=== PATIENT | female | born 1990 | race African-American/Black ===

== ENCOUNTER 2023-10-26 19:30 | Emergency (ER) | payer OTHER, SELFPAY ==
[2023-10-26 19:35] VITALS: BP 155/101; BMI 26.6
[2023-10-26 20:54] VITALS: BP 155/110
[2023-10-26 21:00] VITALS: BP 147/102
[2023-10-26 22:00] VITALS: BP 145/107
--- NOTE | 2023-10-26 22:30 | ED.GENMED ---
History of Present Illness
General
Chief Complaint: Chest Pain
Source: patient
Time Seen by Provider: 10/26/23 21:54
Travel History
Have you had any contact with someone who has COVID-19?: No
Do you have any symptoms of coronavirus? Fever > 100 degrees, chills, cough, shortness of breath, sore throat, loss of taste or smell, muscle aches, or headache?: No
History of Present Illness
History of Present Illness:
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
medication. In the last week or so she also notes that she has been having intermittent episodes of chest 'tightness' across the upper part of her chest without radiation, exacerbating, relieving factors. This comes on 'randomly' up to 1-2 times a
day, lasting minutes at a time and then resolving. This not associated with back pain, neck pain, shoulder pain, diaphoresis, vomiting, dyspnea. She also notes intermittent episodes of left arm tingling from her shoulder to her fingertips not
associated with clumsiness or weakness. She is also had intermittent episodes of nausea and nonspecific headache. She is concerned that her symptoms may be related to blood pressure elevation.
Past History
Past History
ED Past Medical History: HTN
ED Past Surgical History: Cholecystectomy
Social History
Tobacco: Non-smoker
Alcohol: None
Drug: None
Living: with family
Employment: Employed
Phy Exam
Physical Exam
Physical Exam:
GENERAL: Alert , in no apparent distress
EYE: pupils equal and reactive
NECK: Supple, no significant adenopathy.
ENT: o/p clr, mmm.
CARDIAC: Regular rate and rhythm .
LUNGS: Clear breath sounds bilaterally, no acute respiratory distress, no wheezes/rales/rhonchi
ABDOMEN: Soft, without focal tenderness, no r/g, no cvat
NEUROLOGICAL: Alert and oriented, no focal neuro deficits
SKIN: Warm and dry, skin intact.
MUSCULOSKELETAL: No edema, well perfused.
PSYCH: Normal and appropriate interaction.
Scores
Heart Score for Chest Pain Patients
STEMI patient?: Not applicable
Course
Orders/Labs/Results
Orders:
Orders
10/26/23 19:37
EKG [Electrocardiogram (*1)] Urgent
Reason for Study: Chest Pain
EKG- Treatment ONCE
10/26/23 22:30
Cardiac Monitoring- Treatment ONCE
10/26/23 22:40
Complete Blood Count/No Diff Urgent
Comprehensive Metabolic Panel Urgent
Troponin I Urgent
10/27/23 01:49
Troponin I Urgent
Abnormal Lab Results
10/26/23
22:40
Chloride 108 H mmol/L
(98-107)
10/26/23 22:40
10/26/23 22:40
Vital Signs
Initial and Last Documented VS:
Initial Vital Signs
Temp Pulse Resp BP Pulse Ox
98.3 F 88 16 155/101 100
10/26/23 19:35 10/26/23 19:35 10/26/23 19:35 10/26/23 19:35 10/26/23 19:35
Last Documented Vital Signs
Temp Pulse Resp BP Pulse Ox
98.3 F 71 10 127/90 97
10/26/23 19:35 10/27/23 01:15 10/27/23 01:15 10/27/23 01:00 10/27/23 01:15
*Critical Care Note
Total Time (30-74mins, 75-104mins- exclusive of procedures): Not Applicable
Update Note
Update Note:
Patient presents to the Emergency Department with ___chest pain, arm tingling, headache, nausea, etc.
Number and Complexity of Problems Addressed at the Encounter
� Chronic conditions affecting care:
� Acute Exacerbation and/or Progression of Chronic Illness:
� Differential Diagnosis includes: But not limited to hypertension related symptoms, ACS, etc.
Amount and/or Complexity of Data to be Reviewed and Analyzed
� I performed an independent evaluation of and my interpretation is:
EKG: Read by me, normal sinus rhythm, normal rate, normal axis, no acute ischemia
CT:
Xrays:
Laboratory Studies: Generally unremarkable
Other:
� Review of other/old records reveals:
� Clinical information was obtained by an independent historian:
� Prescriptions/Medications Considered but not given:
� Further testing considered but not performed:
Risk of Complications and/or Morbidity or Mortality of Patient Management
� Social determinants of health affecting care:
� Discussion with other providers (PCP, Hospitalists, Consultants, etc):
� Escalation of care including admission/observation vs risk of discharge considered: 2:29 AM prolonged observation here, patient took a nap, resting comfortably, repeat blood pressure more reassuring. Long discussion with
patient regarding importance of follow-up particularly around her blood pressure and reasons to return to the ER. She does not describe chest pain or other symptoms at this time. Highly doubt dissection, PE, ACS, etc. given workup history and
physical here.
ED Attending Note
-
Portions of this chart may have been created with voice recognition software.� Occasional wrong word or��sound alike� substitutions may have occurred due to the inherent limitations of voice recognition software.
Discharge Plan
Departure
Patient Disposition: Home (Routine Discharge)
Date of Disposition: 10/27/23
Time of Disposition: 02:27
Patient with high blood pressure during this ER visit?: Yes
Condition: Good
Discharge Problem:
Chest pain
Instructions: Chest Pain PCP Follow Up, BLOOD PRESSURE
Prescriptions:
No Action
alprazolam [Xanax] 0.5 mg tablet
0.5 mg PO BID PRN (Reason: anxiety) Qty: 10 0RF
hydrochlorothiazide 12.5 mg Tablet
12.5 mg PO DAILY
Referrals:
Wilber Malave MD [Family Provider] - Follow up in 2-3 days
Activity Restrictions/Additional Instructions:
PLEASE SEE YOUR PRIMARY CARE DOCTOR AND CLOSE FOLLOW-UP THIS WEEK, IN REGARDS TO NOT ONLY YOUR SYMPTOMS TODAY BUT ALSO YOUR ELEVATED BLOOD PRESSURE. IF YOU DEVELOP RECURRENT OR NEW CHEST PAIN, ANY SHORTNESS OF BREATH, FEVER, VOMITING, ABDOMINAL
PAIN, OR OTHER WORRISOME SIGNS, PLEASE RETURN TO THE ER IMMEDIATELY.
Interventions
Interventions:
*Risk Screen - Suicide Last Done: 10/26/23 19:35
*General Assessment Last Done: 10/26/23 20:44
*Neglect/Abuse Screening Last Done: 10/26/23 19:35
ED- Fall Risk Assessment Last Done: 10/26/23 20:44
*ED COVID-19 Vaccine History Last Done: 10/26/23 19:35
ED- Cardiac Assessment Last Done: 10/26/23 20:44
Discharge Date and Time
Print Language: PERSIAN
[2023-10-26 22:53] LABS: Hematocrit 37.4 % (37.0-47.0); Hemoglobin 12.5 g/dL (12.0-16.0); Mean Corp Hgb Conc. 33.4 g/dL (33.0-37.0); Mean Corpuscular Hgb 29.5 pg (27.0-31.0); Mean Corpuscular Volume 88.2 fL (81.0-99.0); Mean Platelet Volume 10.2 fL (7.4-10.4); Platelet Count 245 10^3/uL (130-400); Red Blood Cell Count 4.24 10^6/uL (4.20-5.40); Red Cell Dist. Width 12.7 % (11.5-14.5); White Blood Cell Count 5.3 10^3/uL (4.8-10.8)
[2023-10-26 23:00] VITALS: BP 140/94
[2023-10-26 23:17] LABS: ALT (SGPT) 12 U/L (0-35); AST (SGOT) 17 U/L (14-36); Albumin 4.1 g/dl (3.5-5.0); Alkaline Phosphatase 74 U/L (38-126); Blood Urea Nitrogen 13 mg/dl (7-17); Calcium 9.4 mg/dl (8.4-10.2); Carbon Dioxide 26 mmol/L (22-30); Chloride 108 mmol/L (98-107); Estimated Creatinine Clearance 120 ml/min; Glucose 90 mg/dl (70-99); Sodium 138 mmol/L (135-145); Total Bilirubin 0.5 mg/dl (0.2-1.3); eGFR > 60.00
[2023-10-26 23:28] LABS: Troponin I < 0.012 ng/ml
[2023-10-27] VITALS: BP 128/89
[2023-10-27 01:00] VITALS: BP 127/90
[2023-10-27 02:21] LABS: Troponin I < 0.012 ng/ml
== END 2023-10-27 03:13 | disposition home or self-care (01) ==
LOC: EMR 19:30
PROVIDERS: EMERGENCY PHYSICIAN Emergency Medicine; FAMILY PHYSICIAN Family Medicine
DX: R07.89 Other chest pain (principal); I10 Essential (primary) hypertension; Z90.49 Acquired absence of other specified parts of digestive tract
CPT/HCPCS: 99283; 80053; 84484; 85027; 93005

== ENCOUNTER 2024-03-09 15:50 | Emergency (ER) | payer OTHER, SELFPAY ==
[2024-03-09 15:52] VITALS: BP 168/108
[2024-03-09 17:06] VITALS: BMI 27.1
[2024-03-09 17:28] VITALS: BP 145/99
[2024-03-09 18:42] VITALS: BP 137/97
--- NOTE | 2024-03-09 19:22 | ED.MUSCINJ ---
HPI-Injury
General
Chief Complaint: Extremity Pain (non-traumatic)
Source: patient
Exam Limitations: none
Time Seen by Provider: 03/09/24 18:50
Nursing documentation reviewed up to this point in time: agreed with
History of Present Illness-Injury
Is this injury a work related problem?: No
Is pt an associate of [facility]/[place]?: No
Initial Injury comments:
Patient to ED for eval of bruising to her left lateral knee. She noticed bruisisng this week. Denies any history of trauma. Bruising resolved. Brought self to eD for eval. No other areas of bruising noted.
Past History
Past History
ED Past Medical History: HTN
ED Past Surgical History: Cholecystectomy
Social History
Tobacco: Non-smoker
Alcohol: None
Drug: None
Living: with family
Employment: Employed
Review of Systems
Review of Systems
Allergies reviewed?: Yes
All Other Systems: ROS reviewed and negative except as documented in HPI and ROS
Constitutional: Reports no symptoms
Musculoskeletal: Reports no symptoms
Skin: Reports other (bruising left lat knee)
Neurological: Reports no symptoms
Psychiatric: Reports no symptoms
Musculoskeletal Injury Exam
Musculoskeletal Injury Exam
Left Lateral Knee:
Pain with Movement?: None
Tender to palpation?: None
Soft tissue swelling?: None
External deformity and angulation?: None
Joint effusion?: None
Contusion?: None
Strain- Sprain- Tear (Connective tissue injury)?: None
Crepitus with movement?: No
Joint instability?: No
Malalignment/deformity?: No
Range of motion: Full
Distal skin color and temperature: normal-warm & good color
Capillary Refill: normal
Normal distal neurovascular exam?: Yes
Phy Exam
General Physical Exam
General Presentation: well appearing and no apparent distress
General age: appears stated age
General Skin: warm and dry
General Habitus: normal
General Mental: alert
General Hydration: appears well hydrated
Musculoskeletal Exam
Musculoskeletal Exam: full ROM and neuro vasc intact
Skin Exam
Skin Exam: normal color
Psychiatric Exam
Psychiatric Exam: normal mood/affect
Injury Course
Orders/Labs/Results
Orders:
Orders
03/09/24 15:55
CR Knee - Left 4 Or More View* Urgent
Comment:
Reason For Exam: pain no trauma
US Legs, Left [US Periph Venous LOWER Ext LT] Urgent
Comment:
Reason For Exam: pain no trauma
*Radiology
Radiology exam reviewed: preliminary read by ED provider
*Pulse Oximetry
Patient hypoxic: no
*Critical Care Note
Total Time (30-74mins, 75-104mins- exclusive of procedures): Not Applicable
ED Attending Note
-
Portions of this chart may have been created with voice recognition software.� Occasional wrong word or��sound alike� substitutions may have occurred due to the inherent limitations of voice recognition software.
Discharge Plan
Departure
Patient Disposition: Home (Routine Discharge)
Date of Disposition: 03/09/24
Time of Disposition: 19:13
Patient with high blood pressure during this ER visit?: No
Condition: Good
Covid-19: Not Applicable
Discharge Problem:
knee bruising
Instructions: Taking care of bruises, Minor Contusion ED
Prescriptions:
No Action
alprazolam [Xanax] 0.5 mg tablet
0.5 mg PO BID PRN (Reason: anxiety) Qty: 10 0RF
hydrochlorothiazide 12.5 mg Tablet
12.5 mg PO DAILY
Referrals:
Wilber Malave MD [Family Provider] - Call in 1-3 days for appt
Interventions
Interventions:
*Risk Screen - Suicide Last Done: 03/09/24 17:07
*General Assessment Last Done: 03/09/24 17:07
*Neglect/Abuse Screening Last Done: 03/09/24 17:07
*ED COVID-19 Vaccine History Last Done: 03/09/24 17:07
ED-Skin Assessment Last Done: 03/09/24 17:07
ED-Peripheral Vascular Assessment Last Done: 03/09/24 17:07
ED-Musculoskeletal Assessment Last Done: 03/09/24 17:07
Discharge Date and Time
Print Language: MOZAMBICAN
== END 2024-03-09 19:48 | disposition home or self-care (01) ==
LOC: EMR 15:50
PROVIDERS: EMERGENCY PHYSICIAN Emergency Medicine; FAMILY PHYSICIAN Family Medicine
DX: S80.02XA Contusion of left knee, initial encounter (principal); X58.XXXA Exposure to other specified factors, initial encounter; I10 Essential (primary) hypertension
CPT/HCPCS: 99284; 73564; 93971

== ENCOUNTER 2024-08-30 20:13 | Emergency (ER) | payer OTHER, SELFPAY ==
[2024-08-30 20:15] VITALS: BP 149/100
--- NOTE | 2024-08-30 21:14 | ED.GENMED ---
History of Present Illness
General
Chief Complaint: Cough
Source: patient
Exam Limitations: none
Time Seen by Provider: 08/30/24 20:44
History of Present Illness
History of Present Illness:
Patient with persistent cough for 2 weeks. No hemoptysis no pleuritic pain no shortness of breath. No one else is ill at home. No travel history. No calf pain. Patient does not smoke. No control pills. Denies . Cough is
annoying and not resolving.
Past History
Past History
ED Past Medical History: HTN
ED Past Surgical History: Cholecystectomy
Social History
Tobacco: Non-smoker
Alcohol: None
Drug: None
Living: with family
Employment: Employed
Review of Systems
Review of Systems
All Other Systems: Not applicable
Constitutional: Denies fever
Respiratory: Denies hemoptysis
Cardiac: Denies chest pain
Phy Exam
Physical Exam
Physical Exam:
GENERAL: Alert and oriented in no apparent distress
EYE: Orbits normal.
NECK: Supple
CARDIAC: Regular rate and rhythm without any obvious murmurs.
LUNGS: Clear breath sounds,normal. Occasional dry cough
ABDOMEN: Soft, without focal tenderness or distention
NEUROLOGICAL: Alert and oriented , grossly non-focal
SKIN: Warm and dry, no rash or lesion, no discoloration, skin intact.
MUSCULOSKELETAL: No edema,no deformity.Good color
PSYCH: Normal and appropriate interaction.
Course
Orders/Labs/Results
Orders:
Orders
08/30/24 20:18
Chest [CR Chest - 2 Views ] Urgent
Comment:
Reason For Exam: cough
08/30/24 21:13
Doxycycline [Vibramycin] 100 mg PO NOW STA
08/30/24 21:14
Prednisone [Deltasone] 40 mg PO NOW STA
Vital Signs
Initial and Last Documented VS:
Initial Vital Signs
Temp Pulse Resp BP Pulse Ox
98.2 F 93 18 149/100 100
08/30/24 20:15 08/30/24 20:15 08/30/24 20:15 08/30/24 20:15 08/30/24 20:15
Last Documented Vital Signs
Temp Pulse Resp BP Pulse Ox
98.2 F 93 18 149/100 100
08/30/24 20:15 08/30/24 20:15 08/30/24 20:15 08/30/24 20:15 08/30/24 20:15
MDM/Problems Addressed
Differential Diagnosis Includes:
Patient with ongoing cough. Likely viral bronchitis. However she has had symptoms for 2 weeks. She has mild expiratory rhonchi on a few deep breaths. Very low suspicion for pulmonary emboli. No risk factors. No leg swelling. No tachycardia no
tachypnea no hypoxia no control pills. Since symptoms have been going on for this long we will do a trial of Doxy and steroids to follow-up
*Radiology
Radiology exam reviewed: preliminary read by ED provider (Negative chest x-ray)
*Pulse Oximetry
Patient hypoxic: no
*Critical Care Note
Total Time (30-74mins, 75-104mins- exclusive of procedures): Not Applicable
ED Attending Note
-
Portions of this chart may have been created with voice recognition software.� Occasional wrong word or��sound alike� substitutions may have occurred due to the inherent limitations of voice recognition software.
Discharge Plan
Departure
Date of Disposition: 08/30/24
Time of Disposition: 21:18
Patient with high blood pressure during this ER visit?: Yes
Discharge Problem:
Persisting cough
Instructions: Cough, Adult (DC), BLOOD PRESSURE
Prescriptions:
New
doxycycline hyclate 100 mg capsule
100 mg PO BID 10 Days Qty: 20 0RF
methylprednisolone [Medrol (Moncho)] 4 mg tablets,dose pack
See Rx Instructions .ROUTE .COMPLEX Qty: 21 0RF
Rx Instructions:
orally per package directions
No Action
alprazolam [Xanax] 0.5 mg tablet
0.5 mg PO BID PRN (Reason: anxiety) Qty: 10 0RF
hydrochlorothiazide 12.5 mg Tablet
12.5 mg PO DAILY
Activity Restrictions/Additional Instructions:
Follow-up closely with your primary physician
Get rechecked if symptoms persist or are not improving in 2 to 3 days
Interventions
Interventions:
*Risk Screen - Suicide Last Done: 08/30/24 20:15
*General Assessment Last Done: 08/30/24 20:15
*Neglect/Abuse Screening Last Done: 08/30/24 20:15
*ED COVID-19 Vaccine History Last Done: 08/30/24 20:15
Discharge Date and Time
Print Language: TAJIK
[2024-08-30] MEDS: DELTASONE 40 MG PO (21:28)
[2024-08-30] MEDS: VIBRAMYCIN 100 MG PO (21:28)
[2024-08-30 21:32] VITALS: BP 149/104
== END 2024-08-30 21:39 | disposition home or self-care (01) ==
LOC: EMR 20:13
PROVIDERS: EMERGENCY PHYSICIAN Emergency Medicine
DX: R05.3 Chronic cough (principal); I10 Essential (primary) hypertension
CPT/HCPCS: 99283; 71046